=== PATIENT | male | born 1950 | race African-American/Black ===

== ENCOUNTER 2022-06-21 09:41 | Day surgery (SDC) | payer MEDICARE, OTHER, SELFPAY ==
[2022-06-14 15:00] VITALS: BMI 30.9
--- NOTE | 2022-06-20 10:25 | HO.ANESPROP2 ---
Documented by User: Soniya James NP 06/20/22 10:28 HPI - Anesthesia Eval Consult details Narrative: 71yo M for Right AV Fistula Creation ESRD with HD [facility] Past Medical History Medical History (Updated 06/14/22 @ 14:55 by Alice Carter, RN) COPD (chronic obstructive pulmonary disease) Diabetes mellitus Edema ESRD (end stage renal disease) Hepatitis History of alcohol abuse Hx of smoking Hyperlipidemia Hypomagnesemia Pulmonary edema Sleep apnea Surgical History Surgical History (Updated 06/14/22 @ 14:51 by Alice Carter, RN) Hx of colonoscopy Social History Social History Are you a primary team primary care physician to a significant other at home: No Do you presently have visiting nurse or other home services: No (Had VNA-) Patient Tobacco Use Status: Former Tobacco user Quit Date: ~ 5 yrs ago Tobacco use type: Cigarette Use of substances other than those prescribed or required for medical reasons: No Have you been hit, kicked, punched, or otherwise hurt by someone within the past year? If so, by whom?: No Are you DNR?: No Advance Directives: No Advance Directives Information Provided: Yes Advance Directives on File: No Recently lost weight without trying: No Eating poorly because of decreased appetite: No Nutrition Risks: No Nutritional Risk Meds Allergies Allergy/AdvReac Type Severity Reaction Status Date / Time aspirin Allergy Unknown Verified 06/14/22 14:51 Home Medications Medication Instructions Recorded Confirmed Last Taken Type albuterol sulfate 90 mcg/actuation 1 puff inhalation QID PRN Wheezing 06/13/22 06/13/22 Unknown History aerosol inhaler (ProAir HFA) amlodipine 10 mg tablet 10 mg PO DAILY 06/13/22 06/13/22 Unknown History atorvastatin 80 mg tablet 80 mg PO DAILY 06/13/22 06/13/22 Unknown History budesonide-formoterol HFA 80 1 puff inhalation BID 06/13/22 06/13/22 Unknown History mcg-4.5 mcg/actuation aerosol inhaler (Symbicort) bumetanide 1 mg tablet 1 mg PO DAILY 06/13/22 06/13/22 Unknown History calcitriol 0.25 mcg capsule 0.25 mcg PO 3XW 06/13/22 06/13/22 Unknown History carvedilol 6.25 mg tablet 6.25 mg PO BID 06/13/22 06/13/22 Unknown History clonidine HCl 0.1 mg tablet 0.1 mg PO BID 06/13/22 06/13/22 Unknown History folic acid 1 mg tablet 1 mg PO DAILY 06/13/22 06/13/22 Unknown History glucagon 0.5 mg/0.1 mL mg subcut 06/13/22 Unknown History subcutaneous auto-injector hydralazine 25 mg tablet 25 mg PO TID 06/13/22 06/13/22 Unknown History insulin glargine 100 unit/mL 15 unit subcut QPM 06/13/22 06/14/22 Unknown History subcutaneous solution (Lantus U-100 Insulin) insulin lispro 100 unit/mL 1 sliding scale dose subcut 06/13/22 06/13/22 Unknown History subcutaneous solution (Humalog USEASDIRECTD U-100 Insulin) levetiracetam 500 mg tablet 500 mg PO BID 06/13/22 06/13/22 Unknown History (Keppra) magnesium oxide 400 mg PO DAILY 06/13/22 06/13/22 Unknown History polyethylene glycol 3350 17 17 g PO DAILY 06/13/22 06/13/22 Unknown History gram/dose oral powder potassium chloride 10 mEq 10 meq PO DAILY 06/13/22 06/13/22 Unknown History tablet,extended release (Klor-Con) Exam Exam Date and Time: June 20, 2022 1025 Height,Weight and Vital Signs: Height 5 ft 4 in Weight 81.647 kg Assessment and Plan Assessment Anesthesia Assessment: Chart Reviewed Documented by User: Sacha Ceballos MD 06/21/22 17:20 [facility] Past Medical History Medical History (Updated 06/14/22 @ 14:55 by Alice Carter RN) COPD (chronic obstructive pulmonary disease) Diabetes mellitus Edema ESRD (end stage renal disease) Hepatitis History of alcohol abuse Hx of smoking Hyperlipidemia Hypomagnesemia Pulmonary edema Sleep apnea Family History Family history of problems with anesthesia: No Surgical History Surgical History (Updated 06/14/22 @ 14:51 by Alice Carter RN) Hx of colonoscopy History of Problems with Anesthesia: No Social History Social History Are you a primary team primary care physician to a significant other at home: No Do you presently have visiting nurse or other home services: No (Had VNA-) Patient Tobacco Use Status: Former Tobacco user Quit Date: ~ 5 yrs ago Tobacco use type: Cigarette Use of substances other than those prescribed or required for medical reasons: No Have you been hit, kicked, punched, or otherwise hurt by someone within the past year? If so, by whom?: No Are you DNR?: No Advance Directives: No Advance Directives Information Provided: Yes Advance Directives on File: No Recently lost weight without trying: No Eating poorly because of decreased appetite: No Nutrition Risks: No Nutritional Risk Meds Allergies Allergy/AdvReac Type Severity Reaction Status Date / Time aspirin Allergy Unknown Verified 06/14/22 14:51 Home Medications Medication Instructions Recorded Confirmed Last Taken Type albuterol sulfate 90 mcg/actuation 1 puff inhalation QID PRN Wheezing 06/13/22 06/13/22 Unknown History aerosol inhaler (ProAir HFA) amlodipine 10 mg tablet 10 mg PO DAILY 06/13/22 06/13/22 Unknown History atorvastatin 80 mg tablet 80 mg PO DAILY 06/13/22 06/13/22 Unknown History budesonide-formoterol HFA 80 1 puff inhalation BID 06/13/22 06/13/22 Unknown History mcg-4.5 mcg/actuation aerosol inhaler (Symbicort) bumetanide 1 mg tablet 1 mg PO DAILY 06/13/22 06/13/22 Unknown History calcitriol 0.25 mcg capsule 0.25 mcg PO 3XW 06/13/22 06/13/22 Unknown History carvedilol 6.25 mg tablet 6.25 mg PO BID 06/13/22 06/13/22 Unknown History clonidine HCl 0.1 mg tablet 0.1 mg PO BID 06/13/22 06/13/22 Unknown History folic acid 1 mg tablet 1 mg PO DAILY 06/13/22 06/13/22 Unknown History glucagon 0.5 mg/0.1 mL mg subcut 06/13/22 Unknown History subcutaneous auto-injector hydralazine 25 mg tablet 25 mg PO TID 06/13/22 06/13/22 Unknown History insulin glargine 100 unit/mL 15 unit subcut QPM 06/13/22 06/14/22 Unknown History subcutaneous solution (Lantus U-100 Insulin) insulin lispro 100 unit/mL 1 sliding scale dose subcut 06/13/22 06/13/22 Unknown History subcutaneous solution (Humalog USEASDIRECTD U-100 Insulin) levetiracetam 500 mg tablet 500 mg PO BID 06/13/22 06/13/22 Unknown History (Keppra) magnesium oxide 400 mg PO DAILY 06/13/22 06/13/22 Unknown History polyethylene glycol 3350 17 17 g PO DAILY 06/13/22 06/13/22 Unknown History gram/dose oral powder potassium chloride 10 mEq 10 meq PO DAILY 06/13/22 06/13/22 Unknown History tablet,extended release (Klor-Con) Exam Airway Mallampati Class: III TM Dist: >3cm Neck ROM: Full Partial: Upper Loose/Missing/Broken Teeth: Yes (Poor dentition globally ) Heart: S1,S2 Lungs: b/l breath sounds Assessment and Plan Assessment Anesthesia Assessment: Anesthesia Plan Discussed Final Anesthetic Review Family History of Problems with Anesthesia: No History of Problems with Anesthesia: No NPO: Yes ASA Class: III Final Preanesthetic Review: Meds/Allgs Chart Reviewed, Consent Obtained/Reviewed and Anes Risks/Benef Reviewed Patient Risk: High Procedure Risk: Intermediate Anesthetic Plan Anesthetic Plan: MAC: (Gen Backup ) Disposition: Standard PACU
[2022-06-21] VITALS (9 sets, daily range): BP systolic 156–187; BP diastolic 74–84; PULSE 58–63; RESP 16; TEMP 36.2–36.7; O2SAT 97–100; BMI 30.9; BMI 34.3
[2022-06-21 10:06] LABS: Anion Gap 20 (12-20); Carbon Dioxide 22 mmol/L (22-29); Chloride 100 mmol/L (96-108); Potassium 4.1 mmol/L (3.3-5.1); Sodium 138 mmol/L (135-145)
[2022-06-21 10:08] LABS: Glucose, Whole Blood 215 mg/dL (60-115)
--- NOTE | 2022-06-21 11:22 | PC.NURSE ---
patient and poor historians. patient did not take medications this morning he stated and the stated as well. They both confirmed that he did not eat anything since last night.
--- NOTE | 2022-06-21 14:11 | W.PM.OPN ---
Operative Note Operative Note Date of Service: 06/21/22 Narrative: Pre-op Diagnosis: ESRD Post-op Diagnosis: ESRD Operation: Creation of right arm AV fistula - brachiocephalic Surgeon: Lizzette Gonzales Anesthesia: MAC and local EBL: 20 cc Procedure: Patient was placed on the OR table in a supine position with both arms abducted on padded arm boards. Lower extremity compression devices were placed. After successful induction of MAC anesthesia, the patient was prepped and draped in a sterile fashion. A surgical timeout took place. Local anesthesia was used. An incision was made below the elbow in the antecubital fossa. The cephalic vein was dissected and skeletonized. Branches were ligated and divided using 4-0 silk ties. The brachial artery was dissected and skeletonized. Clamps were placed to control inflow and ouflow. An arteriotomy was made. The cephalic vein was ligated and the proximal end was anastomosed to the brachial artery with 6-0 Prolene in a running fashion. The clamps were released and flow through the fistula was excellent. Hemostasis was maintained. The incision was closed in layers. Perfusion to the hand was excellent. Surgical glue was applied. All instrument, sponge and needle counts were correct at the end of the case.
== END 2022-06-21 16:15 | disposition home or self-care (01) ==
PROVIDERS: Nurse Practitioner; PCP Internal Medicine; Visit Provider Transplant Surgery
PROC: (CPT 36821; principal; 2022-06-21 10:00)
DX: E11.22 Type 2 diabetes mellitus with diabetic chronic kidney disease (principal); N18.6 End stage renal disease; I12.0 Hypertensive chronic kidney disease with stage 5 chronic kidney disease or end stage renal disease; Z99.2 Dependence on renal dialysis; I25.10 Atherosclerotic heart disease of native coronary artery without angina pectoris; J44.9 Chronic obstructive pulmonary disease, unspecified; Z79.4 Long term (current) use of insulin; Z79.51 Long term (current) use of inhaled steroids; Z79.899 Other long term (current) drug therapy; Z88.8 Allergy status to other drugs, medicaments and biological substances; Z87.891 Personal history of nicotine dependence
CPT/HCPCS: 36821; 36415; 80051; 82947; J0690; J1100; J2405; J3010